=== PATIENT | female | born 1940 | race American Indian/Alaskan Native ===

== ENCOUNTER 2019-01-08 13:03 | Day surgery (SDC) | payer OTHER, MEDICARE ==
[~2019-01-08 13:03] MED LIST: IOPIDINE ONE; MYDRIACYL ONE; NEOFRIN ONE
[2019-01-08] MEDS ORDERED: NEOFRIN OS ONE (13:15)
[2019-01-08] MEDS ORDERED: MYDRIACYL OS ONE (13:15)
[2019-01-08] MEDS ORDERED: IOPIDINE OS ONE (13:15)
[2019-01-08 13:32] VITALS: BP 144/67
== END 2019-01-08 15:49 | disposition home or self-care (01) ==
LOC: OR 13:03
PROVIDERS: ATTEND Specialist
DX: H26.492 Other secondary cataract, left eye (principal); G43.909 Migraine, unspecified, not intractable, without status migrainosus; I10 Essential (primary) hypertension; M19.90 Unspecified osteoarthritis, unspecified site; E05.90 Thyrotoxicosis, unspecified without thyrotoxic crisis or storm; Z72.89 Other problems related to lifestyle; Z98.890 Other specified postprocedural states; Z79.899 Other long term (current) drug therapy; Z98.41 Cataract extraction status, right eye; Z98.42 Cataract extraction status, left eye

== ENCOUNTER 2019-01-15 11:32 | Day surgery (SDC) | payer OTHER, MEDICARE ==
[2019-01-15] MEDS ORDERED: IOPIDINE OD ONE ×2 (11:38→12:35)
[2019-01-15] MEDS ORDERED: NEOFRIN OD ONE (11:38)
[2019-01-15] MEDS ORDERED: MYDRIACYL OD ONE (11:38)
[2019-01-15] MEDS ORDERED: MYDRIACYL ONE (11:43)
[2019-01-15] MEDS ORDERED: NEOFRIN ONE (11:43)
[2019-01-15] MEDS ORDERED: IOPIDINE ONE (11:43)
[2019-01-15 12:13] VITALS: BP 156/78
== END 2019-01-15 12:36 | disposition home or self-care (01) ==
LOC: OR 11:32
PROVIDERS: ATTEND Specialist
DX: H26.491 Other secondary cataract, right eye (principal); I10 Essential (primary) hypertension; M19.90 Unspecified osteoarthritis, unspecified site; E05.90 Thyrotoxicosis, unspecified without thyrotoxic crisis or storm; G43.909 Migraine, unspecified, not intractable, without status migrainosus; Z79.899 Other long term (current) drug therapy; Z98.42 Cataract extraction status, left eye; Z98.41 Cataract extraction status, right eye; Z72.89 Other problems related to lifestyle; Z98.890 Other specified postprocedural states